=== PATIENT | female | born 1975 | race African-American/Black ===

== ENCOUNTER 2018-12-20 09:38 | Outpatient (CLI) | payer MEDICAID ==
[~2018-12-20] VITALS: Ht 152.4 cm; Wt 58.1 kg
[2018-12-20] MEDS ORDERED: CATAPRES0.2 MG ORAL (14:49)
[2018-12-20] MEDS ORDERED: BENICAR20 MG ORAL (14:49)
[2018-12-20] MEDS ORDERED: HYDROCHLOROTH12.5 M2 ORAL (14:49)
[2018-12-20] MEDS ORDERED: ISOSORBIDE MONO30 M1 PO (14:49)
[2018-12-20] MEDS ORDERED: ONGLYZA5 MG PO (14:49)
[2018-12-20] MEDS ORDERED: GLIPIZIDE5 MG ORAL (14:49)
[2018-12-20] MEDS ORDERED: PLAVIX75 MG ORAL (14:49)
[2018-12-20] MEDS ORDERED: BYSTOLIC2.5 MG ORAL (14:49)
[2018-12-20] MEDS ORDERED: ASPIRIN EC81 MG ORAL (14:49)
[2018-12-20] MEDS ORDERED: HYDRALAZINE HCL50 MG ORAL (14:49)
[2018-12-20] MEDS ORDERED: ATORVASTATIN CA80 MG ORAL (14:49)
[2018-12-20] MEDS ORDERED: NORVASC10 MG ORAL (14:49)
[2018-12-20 14:50] VITALS: BP 119/79
--- NOTE | 2018-12-27 16:56 | Consultation ---
DATE OF CONSULTATION: 12/20/2018 CONSULTING PHYSICIAN: Madi Garrison M.D. CHIEF COMPLAINT: Abdominal pain, possible abdominal mass. HISTORY OF PRESENT ILLNESS: This is a 43-year-old female, who was referred to us for evaluation for pancreatic mass. PAST MEDICAL HISTORY: 1. Hyperlipidemia. 2. Hypertension. 3. Diabetes. PAST SURGICAL HISTORY: History of cardiac stent placement. MEDICATIONS: Please see medication reconciliation list. FAMILY HISTORY: Mother had esophageal cancer. SOCIAL HISTORY: The patient drinks alcohol socially, but denies any tobacco or IV drug abuse. ALLERGIES: To Flagyl. REVIEW OF SYSTEMS: A 10-point review of systems was performed and pertinent positives in HPI. The patient overall complained of GERD, constipation, abdominal pain. PHYSICAL EXAMINATION: GENERAL: This is a well-developed female, in no acute distress. VITAL SIGNS: Temperature 97.1, blood pressure is 119/79, pulse is 74, respirations 18, weight is 128, height is 5. HEENT: Normocephalic and atraumatic. Sclerae anicteric. NECK: Supple. No evidence of obvious lymphadenopathy. CARDIOVASCULAR: Regular rate and rhythm. Plus S1 and S2. No obvious murmur. LUNGS: Clear to auscultation bilaterally. ABDOMEN: Positive bowel sounds. Soft and nontender. No rebound. No guarding. No peritoneal sign. EXTREMITIES: No cyanosis. No clubbing. No edema LABORATORY DATA: Creatinine is 1.49. Hemoglobin is 11. CA-19-9 is 59. CA-125 is 18. The patient had CT of the abdomen and pelvis done in August 2018, at that time showed heterogenous and persistent component of calcification of kidneys consistent with end-stage renal disease. Large retroperitoneal mass in the pericaval space likely consistent with malignant adenopathy or a primary peritoneal neoplasm. Also there is fullness of the pancreatic head suspicious for an underlying pancreatic head neoplasm. The colon is impacted with stool and diverticulosis. ASSESSMENT AND PLAN: This is a 43-year-old female with numerous medical problems, coronary artery disease currently on Plavix. CT findings as dictated above. The patient would need an EUS for biopsy of the tissue for diagnosis, but at this time is complicated because she has been taking Plavix and she had a stent in August, so plan to get hopefully an EUS and FNA authorization from insurance and do it in January when she scan be 6 months from the stent and hopefully we can do that at that time, so meanwhile we are going to treat the constipation aggressively. The patient to follow up in the office in 2 weeks over the phone. I will go ahead and to try to get authorization from the insurance for EUS with FNA. Madi Garrison M.D. DR: TAYO JOB#: [id number] CC:
== END 2018-12-20 11:38 | disposition home or self-care (01) ==
LOC: PAN 09:38
DX: R10.9 Unspecified abdominal pain (principal); E78.5 Hyperlipidemia, unspecified; I10 Essential (primary) hypertension; E11.9 Type 2 diabetes mellitus without complications; Z95.5 Presence of coronary angioplasty implant and graft; Z79.02 Long term (current) use of antithrombotics/antiplatelets; I25.10 Atherosclerotic heart disease of native coronary artery without angina pectoris; K59.00 Constipation, unspecified; K57.90 Diverticulosis of intestine, part unspecified, without perforation or abscess without bleeding; R19.00 Intra-abdominal and pelvic swelling, mass and lump, unspecified site; K21.9 Gastro-esophageal reflux disease without esophagitis
CPT/HCPCS: 99202

== ENCOUNTER → 2019-02-17 | Day surgery (SDC) | payer MEDICAID ==
[~2019-02-17] VITALS: Ht 152.4 cm; Wt 61.2 kg
[2019-02-17] VITALS (8 sets, daily range): BP systolic 119–129; BP diastolic 68–78
[~2019-02-17] MED LIST: ASPIRIN EC81 MG ORAL; ATORVASTATIN CA80 MG ORAL; Atropine Sulfate 0.4mg/ml inj IVP PRN; BENICAR20 MG ORAL; BYSTOLIC2.5 MG ORAL; CATAPRES0.2 MG ORAL; DiphenhydrAMINE 50mg/ml Inj IVP PRN; GLIPIZIDE5 MG ORAL; HYDRALAZINE HCL50 MG ORAL; HYDROCHLOROTH12.5 M2 ORAL; Heplock Flush 100 units/ml 3 ml syr ONE; ISOSORBIDE MONO30 M1 PO; LR 1000ml 1,000 ML IV SCH; LR 1000ml 1,000 ML IVLG SCH; LR 1000ml ONE; Lidocaine 1% MPF 10mg/ml 5ml ONE; Midazolam 2mg/2ml Inj IVP PRN; NORVASC10 MG ORAL; ONGLYZA5 MG PO; PLAVIX75 MG ORAL; Propofol 200mg/20ml IV ONE; fentaNYL 100 mcg/2 mL IV PRN
[2019-02-17 08:39] LABS: BASOPHILS % (AUTO) 1.8 % (0.0-2.0); HEMATOCRIT 35.4 % (37.0-47.0); HEMOGLOBIN 11.8 G/DL (12.0-16.0); LYMPHOCYTES % (AUTO) 23.3 % (20.0-45.0); MEAN CORPUSCULAR VOLUME 71 FL (80-99); MONOCYTES % (AUTO) 7.7 % (1.0-10.0); NEUTROPHILS % (AUTO) 65.3 % (45.0-75.0); PLATELET COUNT 483 K/UL (150-450); RED BLOOD COUNT 4.98 M/UL (4.20-5.40); RED CELL DISTRIBUTION WIDTH 13.4 % (11.6-14.8); WHITE BLOOD COUNT 7.9 K/UL (4.8-10.8)
[2019-02-17 08:45] LABS: ANION GAP 12 mmol/L (5-15); BLOOD UREA NITROGEN 28 mg/dL (7-18); CALCIUM 9.3 MG/DL (8.5-10.1); CARBON DIOXIDE 23 MMOL/L (21-32); CHLORIDE 107 MMOL/L (98-107); CREATININE 1.4 MG/DL (0.55-1.30); POTASSIUM 3.6 MMOL/L (3.5-5.1); SODIUM 142 MMOL/L (136-145)
[2019-02-17 08:46] LABS: INR 0.9 (0.9-1.1)
[2019-02-17 08:49] LABS: ALANINE AMINOTRANSFERASE 45 U/L (12-78); ALBUMIN 3.8 G/DL (3.4-5.0); ALKALINE PHOSPHATASE 156 U/L (46-116); AMYLASE 80 U/L (25-115); ASPARTATE AMINO TRANSFERASE 40 U/L (15-37); BILIRUBIN,TOTAL 0.5 MG/DL (0.2-1.0)
--- NOTE | 2019-02-17 09:03 | Pre-Procedure Note/Attestation ---
Pre-Procedure Note/Attestation Complete Prior to Procedure Planned Procedure: not applicable Procedure Narrative: EUS Indications for Procedure Pre-Operative Diagnosis: abd mass Attestation I attest that I discussed the nature of the procedure; its benefits; risks and complications; and alternatives (and the risks and benefits of such alternatives ), prior to the procedure, with the patient (or the patient's legal human resources hr representative). I attest that, if there was a reasonable possibility of needing a blood transfusion, the patient (or the patient's legal human resources hr representative) was given the [facility] standardized written summary, pursuant to the [place] Blood Safety Act ([place] Health and Safety Code # 1645, as amended). I attest that I re-evaluated the patient just prior to the surgery and that there has been no change in the patient's H&P, except as documented below: Madi Garrison MD Feb 17, 2019 09:03
--- NOTE | 2019-02-17 09:04 | Short Stay Surgery H&P ---
History of Present Illness History of Present Illness Chief Complaint abd mass HPI De Viry Rizzo is a 43 year old female who was admitted on for Hx Of Ca Abdomen Patient History Allergies: Coded Allergies: METRONIDAZOLE (Verified Allergy, Severe, Hives, 12/20/18) PAST MEDICAL HISTORY: (1) CAD (coronary artery disease) (2) DM (3) HTN (hypertension) Medication History Scheduled Amlodipine Besylate (Norvasc), 10 MG ORAL DAILY, (Reported) Aspirin Ec* (Aspirin Ec*), 81 MG ORAL DAILY, (Reported) Atorvastatin Calcium* (Lipitor*), 80 MG ORAL BEDTIME, (Reported) Clonidine Hcl* (Catapres*), 0.2 MG ORAL BID, (Reported) Clopidogrel Bisulfate* (Plavix*), 75 MG ORAL DAILY, (Reported) Glipizide* (Glipizide*), 5 MG ORAL BIDAC, (Reported) Hydralazine Hcl* (Hydralazine Hcl*), 50 MG ORAL EVERY 8 HOURS, (Reported) Hydrochlorothiazide* (Hydrochlorothiazide*), 12.5 MG ORAL DAILY, (Reported) Isosorbide Mononitrate (Isosorbide Mononitrate Er), 30 MG PO BID, (Reported) Nebivolol Hcl* (Bystolic*), 2.5 MG ORAL DAILY, (Reported) Olmesartan Medoxomil (Benicar), 20 MG ORAL DAILY, (Reported) Saxagliptin Hcl (Onglyza), 5 MG PO DAILY, (Reported) Review of Systems Cardiovascular: Reports: no symptoms Respiratory: Reports: no symptoms Skeletal: Reports: no symptoms Gastrointestinal: Reports: no symptoms Genitourinary: Reports: no symptoms Neurologic: Reports: no symptoms Endocrine: Reports: no symptoms Hematologic: Reports: no symptoms Physical Exam Vital Signs Last Vital Signs Date Time Temp Pulse Resp B/P (MAP) Pulse Ox O2 Delivery O2 Flow Rate FiO2 02/17/19 08:33 Room Air 02/17/19 08:00 97.0 67 18 119/75 99 Labs Laboratory Tests Test 02/17/19 08:10 White Blood Count Pending Red Blood Count Pending Hemoglobin Pending Hematocrit Pending Mean Corpuscular Volume Pending Mean Corpuscular Hemoglobin Pending Mean Corpuscular Hemoglobin Concent Pending Red Cell Distribution Width Pending Platelet Count Pending Mean Platelet Volume Pending Neutrophils (%) (Auto) Pending Lymphocytes (%) (Auto) Pending Monocytes (%) (Auto) Pending Eosinophils (%) (Auto) Pending Basophils (%) (Auto) Pending Prothrombin Time Pending Prothromb Time International Ratio Pending Activated Partial Thromboplast Time Pending Sodium Level 142 MMOL/L (136-145) Potassium Level 3.6 MMOL/L (3.5-5.1) Chloride Level 107 MMOL/L (98-107) Carbon Dioxide Level 23 MMOL/L (21-32) Anion Gap 12 mmol/L (5-15) Blood Urea Nitrogen 28 mg/dL (7-18) H Creatinine 1.4 MG/DL (0.55-1.30) H Estimat Glomerular Filtration Rate 49.3 mL/min (>60) Glucose Level 195 MG/DL (74-106) H Calcium Level 9.3 MG/DL (8.5-10.1) Total Bilirubin 0.5 MG/DL (0.2-1.0) Aspartate Amino Transf (AST/SGOT) 40 U/L (15-37) H Alanine Aminotransferase (ALT/SGPT) 45 U/L (12-78) Alkaline Phosphatase 156 U/L (46-116) H Total Protein 7.7 G/DL (6.4-8.2) Albumin 3.8 G/DL (3.4-5.0) Globulin 3.9 g/dL Albumin/Globulin Ratio 1.0 (1.0-2.7) Amylase Level 80 U/L (25-115) Lipase 383 U/L (73-393) CA 19-9 Antigen Pending Skin: normal HENT: normal Heart: normal Lungs: normal Abdomen: normal Extremities: normal Plan Plan of Care eus Attestation Are the patient's medical conditions optimized for surgery? Attestation Response: yes Madi Garrison MD Feb 17, 2019 09:04
--- NOTE | 2019-02-17 09:31 | Anethesia Preoperative Eval ---
Anesthesia Pre-op PMH/ROS General Date of Evaluation: Feb 17, 2019 Time of Evaluation: 08:57 Anesthesiologist: tex ASA Score: ASA 3 Mallampati Score Class I : Soft palate, uvula, fauces, pillars visible Class II: Soft palate, uvula, fauces visible Class III: Soft palate, base of uvula visible Class IV: Only hard plate visible Mallampati Classification: Class II Surgeon: brooklynn Diagnosis: hx/o cancer Surgical Procedure: egd/eus Anesthesia History: none Social History: alcohol use Family History: no anesthesia problems Allergies: Coded Allergies: METRONIDAZOLE (Verified Allergy, Severe, Hives, 12/20/18) Medications: see eMAR Patient NPO?: Yes Past Medical History Cardiovascular: Reports: HTN, CAD, TN, other - hypercholesterolemia Gastrointestinal/Genitourinary: Reports: other - diverticulosis, gastritis, pancreatic lesion, hiatal hernia Endocrine: Reports: DM Hematology/Immune: Reports: other - a Anesthesia Pre-op Phys. Exam Physician Exam Last Vital Signs Date Time Temp Pulse Resp B/P (MAP) Pulse Ox O2 Delivery O2 Flow Rate FiO2 02/17/19 08:33 Room Air 02/17/19 08:00 97.0 67 18 119/75 99 Constitutional: NAD Neurologic: CN 2-12 intact Cardiovascular: RRR Respiratory: CTA Gastrointestinal: S/NT/ND Airway Exam Mallampati Score: Class II MO: full Neck: short TMD: 2fb ROM: full Anesthesia Pre-op A/P Labs Hematology Test 02/17/19 08:10 White Blood Count 7.9 K/UL (4.8-10.8) Red Blood Count 4.98 M/UL (4.20-5.40) Hemoglobin 11.8 G/DL (12.0-16.0) L Hematocrit 35.4 % (37.0-47.0) L Mean Corpuscular Volume 71 FL (80-99) L Mean Corpuscular Hemoglobin 23.8 PG (27.0-31.0) L Mean Corpuscular Hemoglobin Concent 33.5 G/DL (32.0-36.0) Red Cell Distribution Width 13.4 % (11.6-14.8) Platelet Count 483 K/UL (150-450) H Mean Platelet Volume 7.0 FL (6.5-10.1) Neutrophils (%) (Auto) 65.3 % (45.0-75.0) Lymphocytes (%) (Auto) 23.3 % (20.0-45.0) Monocytes (%) (Auto) 7.7 % (1.0-10.0) Eosinophils (%) (Auto) 2.0 % (0.0-3.0) Basophils (%) (Auto) 1.8 % (0.0-2.0) Coagulation Test 02/17/19 08:10 Prothrombin Time 9.3 SEC (9.30-11.50) Prothromb Time International Ratio 0.9 (0.9-1.1) Activated Partial Thromboplast Time 25 SEC (23-33) Chemistry Test 02/17/19 08:10 Sodium Level 142 MMOL/L (136-145) Potassium Level 3.6 MMOL/L (3.5-5.1) Chloride Level 107 MMOL/L (98-107) Carbon Dioxide Level 23 MMOL/L (21-32) Anion Gap 12 mmol/L (5-15) Blood Urea Nitrogen 28 mg/dL (7-18) H Creatinine 1.4 MG/DL (0.55-1.30) H Estimat Glomerular Filtration Rate 49.3 mL/min (>60) Glucose Level 195 MG/DL (74-106) H Calcium Level 9.3 MG/DL (8.5-10.1) Total Bilirubin 0.5 MG/DL (0.2-1.0) Aspartate Amino Transf (AST/SGOT) 40 U/L (15-37) H Alanine Aminotransferase (ALT/SGPT) 45 U/L (12-78) Alkaline Phosphatase 156 U/L (46-116) H Total Protein 7.7 G/DL (6.4-8.2) Albumin 3.8 G/DL (3.4-5.0) Globulin 3.9 g/dL Albumin/Globulin Ratio 1.0 (1.0-2.7) Amylase Level 80 U/L (25-115) Lipase 383 U/L (73-393) CA 19-9 Antigen Pending Studies Pre-op Studies: EKG - nsr, possible inferior infarct Risk Assessment & Plan Assessment: asa3 Plan: mac Status Change Before Surgery: No Pre-Antibiotics Drug: Judie Leal MD Feb 17, 2019 09:31
--- NOTE | 2019-02-17 09:58 | Endoscopy Procedure Note ---
Endoscopy Procedure Note General Indication for Procedure: abd mass Procedures Performed: other Operative Findings/Diagnosis: same Specimen: yes Pt Tolerated Procedure Well: Yes Estimated Blood Loss: none Anesthesia Anesthesiologist: johanny Anesthesia: MAC Inserted Devices Implant(s) used?: No GI Core Measures 50 yrs or older w/o bx or poly: Not Applicable 10yrs. F/U recommended: Not Applicable Madi Garrison MD Feb 17, 2019 09:57
--- NOTE | 2019-02-17 10:46 | Immediate Post-Op Evaluation ---
Immediate Post-Op Evalulation Immediate Post-Op Evalulation Procedure: egd/eus w/bx Date of Evaluation: Feb 17, 2019 Time of Evaluation: 10:11 IV Fluids: 550ml lr Blood Products: none Estimated Blood Loss: negligible Blood Pressure Systolic: 119 Blood Pressure Diastolic: 68 Pulse Rate: 72 Respiratory Rate: 18 O2 Sat by Pulse Oximetry: 99 Temperature (Fahrenheit): 97.6 Pain Score (1-10): 0 Nausea: No Vomiting: No Complications none Patient Status: awake, reacts, patent Hydration Status: adequate Drug: Judie Leal MD Feb 17, 2019 10:46
--- NOTE | 2019-02-17 10:48 | 48 Hour Post Anesthesia Eval ---
Post Anesthesia Evaluation Procedure: egd/eus w/bx Date of Evaluation: Feb 17, 2019 Time of Evaluation: 10:13 Blood Pressure Systolic: 125 0: 78 Pulse Rate: 69 Respiratory Rate: 18 Temperature (Fahrenheit): 97.6 O2 Sat by Pulse Oximetry: 99 Airway: patent Nausea: No Vomiting: No Pain Intensity: 0 Hydration Status: adequate Cardiopulmonary Status: stable Mental Status/LOC: patient returned to baseline Post-Anesthesia Complications: none Follow-up care needed: N/A Judie Lowe MD Feb 17, 2019 10:48
--- NOTE | 2019-02-17 14:15 | Procedure Note ---
DATE OF PROCEDURE: 02/17/2019 SURGEON: Madi Garrison M.D. PROCEDURE: Endoscopic ultrasound with FNA. ANESTHESIA: Per Dr. Hanson. INSTRUMENT: Olympus adult flexible EUS scope. INDICATION: Abdominal mass. REASON FOR PROCEDURE: The procedure, risks, benefits, and possible consequences, including hemorrhage, aspiration, perforation and infection, and alternative treatments, were explained to the patient/legal guardian by Dr. Madi Garrison and the patient/legal guardian understood and accepted these risks. DESCRIPTION OF PROCEDURE: After informed consent was obtained and the patient was adequately sedated, EUS radial scope was introduced into the esophagus, passed into the stomach and second portion of duodenum. Pancreatic parenchyma was carefully examined through the gastroduodenal mucosa. The patient had no evidence of any pancreatitis, no pancreatic mass. Pancreatic duct and common bile duct were not dilated at all. There was a 5 cm lesion peripancreatic next to the head of the pancreas. This seems to be outside the pancreas most probably in the retroperitoneum. This actually has some vascular vessels inside of it. It seems to be a semi solid. It does not look to be a lymph node. At this time, we removed the radial scope and FNA scope was introduced. Three passes of 22-gauge needle was passed and some tissue was obtained and sent to pathology. SUMMARY OF FINDINGS: 1. A 5 cm lesion in next to the head of the pancreas without any involvement of the pancreatic parenchyma. 2. No pancreatic duct or common bile duct dilatation. 3. At this time, we performed three passes of 22-gauge FNA core biopsy of this lesion. RECOMMENDATIONS: Follow up biopsy results and treat accordingly. Madi Garrison M.D. DR: PREMA JOB#: [id number] CC:
== END | disposition home or self-care (01) ==
LOC: GAS 07:03
DX: R19.00 Intra-abdominal and pelvic swelling, mass and lump, unspecified site (principal); I11.9 Hypertensive heart disease without heart failure; I25.10 Atherosclerotic heart disease of native coronary artery without angina pectoris; E11.9 Type 2 diabetes mellitus without complications; Z79.82 Long term (current) use of aspirin; Z79.899 Other long term (current) drug therapy; I25.2 Old myocardial infarction; E78.00 Pure hypercholesterolemia, unspecified; Z88.8 Allergy status to other drugs, medicaments and biological substances; Z85.9 Personal history of malignant neoplasm, unspecified
CPT/HCPCS: 36415; 43232; 80053; 82150; 82962; 83690; 85025; 85610; 85730; 93005; J1642; J2704; Z7512; 94003; 94150